=== PATIENT | female | born 1970 | race African-American/Black ===

== ENCOUNTER 2017-08-07 18:49 | Emergency (ER) | payer SELFPAY ==
[2017-08-07] MEDS ORDERED: Ketorolac Tromethamine 30 MG/ML VIAL ONE (19:19)
== END 2017-08-07 19:49 | disposition home or self-care (01) ==
LOC: ERS 18:49
DX: K02.9 Dental caries, unspecified (principal)
CPT/HCPCS: 96372; J1885